=== PATIENT | female | born 1965 | race American Indian/Alaskan Native ===

== ENCOUNTER 2021-04-28 17:54 | Emergency (ER) | payer OTHER ==
[2021-04-28] MEDS ORDERED: KETOROLAC 10 MG TAB PO ONE (18:22)
[2021-04-28] MEDS ORDERED: CYCLOBENZAPRINE 10 MG TAB PO ONE (18:22)
[2021-04-28] MEDS ORDERED: ACETAMINOPHEN W/CODEINE 300-30 MG TAB PO ONE (18:22)
--- NOTE | 2021-04-28 19:05 | XRay Report ---
LEFT RIBS 5 VIEWS INDICATION: Left rib pain after fall. COMPARISON: None available. FINDINGS: RIBS: No acute, displaced fracture or other acute abnormality. CHEST: No acute findings. No pneumothorax. ADDITIONAL FINDINGS: No additional significant findings. IMPRESSION: 1. No acute abnormality. Signer Name: Aramis Roberson MD Signed: 04/28/2021 7:01 PM Workstation Name: [id number]
--- NOTE | 2021-04-28 19:13 | Emergency Department Report ---
ED Back Pain/Injury HPI - General Chief Complaint: Fall Stated Complaint: FALL Time Seen by Provider: 04/28/21 18:21 Source: patient Limitations: No Limitations - History of Present Illness Initial Comments: 55-year-old black female with a past medical history of asthma presents to the emergency department for evaluation of left rib pain after falling in the shower this morning. She denies loss of consciousness but states that she has severe pain 10 out of 10 to the left flank/rib area. She states the pain is 10 out of 10 and worse with movement and coughing. MD Complaint: back injury, fall -: Sudden Similar Symptoms Previously: No Place: home Radiation: none Severity: severe Severity scale (0 -10): 10 Quality: aching Consistency: constant Worsens With: movement, walking, deep breaths/cough Context: fall Associated Symptoms: denies other symptoms - Related Data Previous Rx's Medication Instructions Recorded Last Taken Type Acetaminophen/Codeine [Tylenol 1 tab PO Q6H PRN #12 tab 04/28/21 Unknown Rx /Codeine # 3 tab] Cyclobenzaprine [Flexeril] 10 mg PO TID PRN #21 tab 04/28/21 Unknown Rx Ketorolac [Toradol] 10 mg PO Q6H PRN #14 tab 04/28/21 Unknown Rx Allergies Allergy/AdvReac Type Severity Reaction Status Date / Time Trofanil Allergy Rash Uncoded 04/28/21 18:05 ED Review of Systems ROS: Stated complaint: FALL Other details as noted in HPI Comment: All other systems reviewed and negative Constitutional: denies: chills, fever Eyes: denies: eye pain ENT: denies: ear pain Respiratory: denies: cough, orthopnea, shortness of breath, SOB with exertion, SOB at rest Cardiovascular: denies: chest pain, palpitations, dyspnea on exertion, orthopnea, edema, syncope Endocrine: no symptoms reported Gastrointestinal: denies: abdominal pain, nausea, vomiting, diarrhea, hematemesis, melena, hematochezia Genitourinary: denies: urgency, dysuria Musculoskeletal: denies: back pain, joint swelling, arthralgia, myalgia Skin: denies: rash, lesions Neurological: denies: headache, weakness, numbness, paresthesias, abnormal gait Psychiatric: denies: anxiety Hematological/Lymphatic: denies: easy bleeding, easy bruising ED Past Medical Hx - Medications Home Medications: Home Medications Medication Instructions Recorded Confirmed Last Taken Type Acetaminophen/Codeine [Tylenol 1 tab PO Q6H PRN #12 tab 04/28/21 Unknown Rx /Codeine # 3 tab] Cyclobenzaprine [Flexeril] 10 mg PO TID PRN #21 tab 04/28/21 Unknown Rx Ketorolac [Toradol] 10 mg PO Q6H PRN #14 tab 04/28/21 Unknown Rx ED Physical Exam - General Limitations: No Limitations General appearance: alert, in no apparent distress - Head Head exam: Present: atraumatic, normocephalic - Eye Eye exam: Present: normal appearance. Absent: conjunctival injection - Neck Neck exam: Present: normal inspection. Absent: tenderness - Respiratory Respiratory exam: Present: normal lung sounds bilaterally. Absent: respiratory distress, wheezes, rales, rhonchi, stridor, chest wall tenderness, accessory muscle use - Cardiovascular Cardiovascular Exam: Present: regular rate, normal heart sounds - GI/Abdominal GI/Abdominal exam: Present: soft. Absent: distended, tenderness, guarding - Extremities Exam Extremities exam: Present: normal inspection - Back Exam Back exam: Present: other (Left flank rib area painful to any touch.). Absent: CVA tenderness (R), CVA tenderness (L) - Expanded Back Exam Expanded 1 - Tender to touch - Neurological Exam Neurological exam: Present: alert, oriented X3 - Psychiatric Psychiatric exam: Present: normal affect - Skin Skin exam: Present: warm, dry, intact, normal color ED Course Vital Signs 04/28/21 04/28/21 18:00 18:52 Temperature 98.4 F Pulse Rate 75 Respiratory 19 18 Rate Blood Pressure 140/90 [Right] O2 Sat by Pulse 99 Oximetry ED Medical Decision Making - Radiology Data Radiology results: report reviewed, image reviewed Left rib x-ray with PA chest no acute abnormalities. - Medical Decision Making 55-year-old black female with a past medical history of asthma presents to the emergency department for evaluation of left rib pain after falling in the shower this morning. She denies loss of consciousness but states that she has severe pain 10 out of 10 to the left flank/rib area. She states the pain is 10 out of 10 and worse with movement and coughing. No acute abnormalities on left rib x-ray with PA chest. Pain slightly improved with medication. Patient was advised to take medication as prescribed and follow-up with primary care provider if no improvement or worsening symptoms. She was advised to follow-up in the emergency department for any concerning symptoms. She verbalized understanding of and agreement with plan of care. Critical care attestation.: If time is entered above; I have spent that time in minutes in the direct care of this critically ill patient, excluding procedure time. ED Disposition Clinical Impression: Rib pain on left side Fall Qualifiers: Encounter type: initial encounter Qualified Code(s): W19.XXXA - Unspecified fall, initial encounter Disposition: HOME / SELF CARE / HOMELESS Is pt being admited?: No Does the pt Need Aspirin: No Condition: Stable Instructions: Nonspecific Chest Pain, Adult, Rib Contusion Additional Instructions: Take medications as prescribed. Follow-up with primary care provider if no improvement or worsening symptoms. Prescriptions: Cyclobenzaprine [Flexeril] 10 mg PO TID PRN #21 tab PRN Reason: Muscle Spasm Ketorolac [Toradol] 10 mg PO Q6H PRN #14 tab PRN Reason: Pain Acetaminophen/Codeine [Tylenol /Codeine # 3 tab] 1 tab PO Q6H PRN #12 tab PRN Reason: Pain , Severe (7-10) Referrals: MONICA LANE MD [Referring] - 3-5 Days
[2021-04-28 19:41] VITALS: BP 146/78
== END 2021-04-28 19:47 | disposition home or self-care (01) ==
LOC: ED 17:54
DX: R07.81 Pleurodynia (principal); Z88.8 Allergy status to other drugs, medicaments and biological substances; W19.XXXA Unspecified fall, initial encounter; Y93.89 Activity, other specified; Y92.89 Other specified places as the place of occurrence of the external cause; Y99.8 Other external cause status
CPT/HCPCS: 99283